=== PATIENT | female | born 1960 | race Caucasian/White ===

== ENCOUNTER 2016-09-30 08:45 | Emergency (ER) | payer BC ==
[2016-09-30] MEDS ORDERED: DIATRIZOATE MEGLU/DIATRIZO SOD 30 ML BTL PO ONE (09:01)
--- NOTE | 2016-09-30 09:07 | ERNOTE ---
Abdominal HPI - Narrative Date of Service: 09/30/16 - General Chief Complaint: Abdominal Pain Time Seen by Provider: 09/30/16 08:54 Source: patient - Immun/Allergies/Home Medications Immunizatons: IMMUNIZATION HX Immunizations Up to Date Yes History of Influenza Vaccine No Allergies/Adverse Reactions: Allergies No Known Allergies Allergy (Verified 09/30/16 08:53) Home Medications: HOME MEDICATIONS Acetaminophen [Tylenol] 650 mg PO Q4H PRN 04/10/13 [Last Taken Unknown] Calcium Carbonate [Calcium] 500 mg PO 09/30/16 [Last Taken Unknown] Cholecalciferol [Vitamin D] 1,000 unit MC 09/30/16 [Last Taken Unknown] Ciprofloxacin HCl [Cipro] 500 mg PO BID #28 tab 09/30/16 [Last Taken Unknown] HYDROcodone/ACETAMINOPHEN [Madison 5-325] 1 tab PO Q6H PRN #10 tab 09/30/16 [Last Taken Unknown] Levothyroxine Sodium [Synthroid] 147 mcg PO DAILY 09/30/16 [Last Taken Unknown] metroNIDAZOLE [Flagyl] 500 mg PO Q8H 14 Days 09/30/16 [Last Taken Unknown] - History of Present Illness Narrative: Patient relates left sided abdominal pain since Sunday. No fevers. No vomiting. No diarrhea. She has never had pain like this before. It has been coming and going since Sunday. She went to the walk in clinic today and was sent here. Worse with walking. Now mild but can be much more intense. No CP or SOB. no urinary Sx. Timing: other - waxing and waning Quality: aching Activities at Onset: none Modifying Factors - (Improves): Present: other - nothing Modifying Factors - (Worsens): Present: other - walking Associated Symptoms: Absent: chest pain, diaphoresis, fever/chills, vomiting, shortness of breath Prior Abdominal Problems: Present: other - remote appendicitis Prior Treatment: Absent: currently on antibiotics Review of Systems - Review of Systems Constitutional: Absent: fever ENT: Present: no symptoms reported Respiratory: Absent: shortness of breath Cardiology: Absent: chest pain Gastrointestinal/Abdominal: Present: See HPI Genitourinary: Present: no symptoms reported Skin: Absent: rash Neurological: Absent: weakness - Patient's Past Medical History Patient History - Medical: Hypothyroidism Patient History - Cardiac/Respiratory: No pertinent hx Patient History - Cancer: Thyroid Patient History - Surgical Procedures: Other Patient History - Other: None - Social History Living Situations: spouse Psych History: No pertinent hx Smoking Status: Former smoker Alcohol Use: none Drug Use: none - Immunizations Immunizations Up to Date: Yes History of Influenza Vaccine: No Physical Exam - Physical Exam General Appearance: Present: alert, no apparent distress Eye Exam: Normal inspection: bilateral, PERRL: bilateral Ears, Nose, Throat: Present: normal ENT inspection Neck: Present: other - trachea midline Respiratory: Present: no respiratory distress Cardiovascular/Chest: Present: regular rate, rhythm Gastrointestinal/Abdominal: Present: normal bowel sounds, nondistended, soft, no organomegaly, tenderness, other - Mild Left mid and left low abdominal tenderenss, no guarding or rebound. No peritoneal signs. Non-surgical exam. Back Exam: Absent: CVA tenderness (R), CVA tenderness (L) Extremity Exam: Present: normal inspection Neurological Exam: Present: alert, normal mood/affect, no motor/sensory deficits Skin Exam: Absent: skin rash ED Progress - Results and Orders Patient's Lab Results:: I have reviewed the patient's lab results. - Vital Signs Patient's Vital Signs:: I have reviewed the patient's vital signs. Vital Signs: Vital Signs 09/30/16 08:49 Temperature 36.0 C L Pulse Rate 94 Respiratory 18 Rate Blood Pressure 104/34 O2 Sat by Pulse 96 Oximetry - CT/Ultrasound CT/Ultrasound Narrative: I reviewed CT report. - Progress/Reassessment Chief Complaint: Abdominal Pain Progress Note-Subjective: 09/30/16 12:13 CT c/w diverticulitis. No abscess or perf. She is stable, non-surgical abdomen. Non-toxic, no distress. Outpatient oral ABx indicated. I discussed with her need for repeat colonoscopy after resolution of this event and need for re-check blood sugar in the office this week. She is agreeable. I discussed warning signs and reasons to return as well as the need for close f/ u. Departure - Departure Clinical Impression: Diverticulitis Disposition: Home self-care Condition: Stable Instructions: Diverticulitis, [id number] Additional Instructions: Rest. Fluids. Follow-up in 3 days with your primary doctor for a re-check. You will need to have your blood sugars re-checked and will need to discuss repeat colonoscopy. Antibiotics as directed. Pain medications if needed, no driving while taking. Return for fever, vomiting or if your condition worsens or changes in any way. No alcohol with these antibiotics Referrals: Beatrice Timmons MD [Primary Care Provider] - Prescriptions: Ciprofloxacin HCl [Cipro] 500 mg PO BID #28 tab HYDROcodone/ACETAMINOPHEN [Madison 5-325] 1 tab PO Q6H PRN #10 tab PRN Reason: Pain metroNIDAZOLE [Flagyl] 500 mg PO Q8H 14 Days
[2016-09-30 09:08] LABS: Urine Bilirubin Negative (NEGATIVE); Urine Blood Negative /ul (NEGATIVE); Urine Ketone Negative (NEGATIVE); Urine Nitrite Negative (NEGATIVE); Urine Protein Negative (NEGATIVE); Urine Urobilinogen Normal (NORMAL)
[2016-09-30 09:13] LABS: Hematocrit 42.1 % (37.0-47.0); Hemoglobin 14.2 gm/dL (12.5-16.0); Mean Cell Volume 88.1 fl (78-100); Mean Corpuscular Hemoglobin 29.7 pg (27-31); Mean Corpuscular Hgb Conc 33.7 g/dl (32-36); Mean Platelet Volume 9.3 fl (6.0-9.5); Neutrophil # 8.2 K/mm3 (1.3-6.0); Neutrophil % 74.8 % (42-75.0); Platelet Count 257 K/mm3 (150-450); Red Blood Count 4.78 M/mm3 (4.2-5.4); Red Cell Distribution Width 13.2 % (11.5-14.0); White Blood Count 10.9 K/mm3 (4.0-10.5)
--- OUTSIDE RECORDS SUMMARY | 2016-09-30 09:18 | XMS REPORT | Continuity of Care Document ---
:1960 Author Organization [facility] ([facility]) Address [address] [place] [address] Phone [phone] Care Team Providers Name Role Phone Unavailable Primary Care Provider Unavailable Source Comments This disclosure is being made pursuant to the Care Everywhere program, applicable federal and state laws, and may not contain all informaitonavailable regarding this patient.[facility] ([facility]) Active Allergies and Adverse Reactions Not on File Current Medications Not on file Active Problems Not on file Social History Tobacco Use Types Packs/Day Years Used Date Never Assessed Plan of Care Health Maintenance Due Date Last Done Comments HCV Screening 1960 Hepatitis B Vaccine (1 of 3 - Primary Series) 1960 Tdap Vaccine 1969 Lipid Disorder Screening 1976 MMR Vaccine 1976 Td Vaccine 1976 Cervical Cancer Screening 1988 Mammogram 1998 Colonoscopy 03/01/2008 Influenza Vaccine: Seasonal (#1) 11/22/2015 Results from Last 3 Months Not on file
[2016-09-30 09:20] LABS: Urine Appearance Clear; Urine Color Dark Yellow
[2016-09-30] MEDS ORDERED: DIATRIZOATE MEGLU/DIATRIZO SOD 30 ML BTL ONE (09:20)
[2016-09-30 09:21] LABS: Urine Bacteria TRACE; Urine RBC TRACE /hpf (0-5); Urine WBC TRACE /hpf (0-5)
[2016-09-30 09:26] LABS: Albumin * 3.7 gm/dl (3.4-5.0); Anion Gap 15.2 mmol/L (6.8-13.8); BUN/Creatinine Ratio 12.2 (9.0-21.6); Bilirubin, Total 1.1 mg/dL (0.0-1.1); Ca. Corrected For Albumin 8.3 mg/dL (8.4-10.2); Calcium * 8.4 mg/dL (7.9-10.9); Carbon Dioxide 27.5 mmol/L (24-32.6); Potassium 3.7 mmol/L (3.4-4.6); Total Protein 8.1 gm/dL (6.2-8.2)
[2016-09-30 12:50] VITALS: BP 156/72
== END 2016-09-30 12:42 | disposition home or self-care (01) ==
LOC: ER 08:45
DX: K57.92 Diverticulitis of intestine, part unspecified, without perforation or abscess without bleeding (principal); Z85.850 Personal history of malignant neoplasm of thyroid; E03.9 Hypothyroidism, unspecified